=== PATIENT | female | born 1990 | race Caucasian/White ===

== ENCOUNTER 2018-04-09 05:33 | Emergency (ER) | payer OTHER ==
[~2018-04-09] VITALS: Ht 162.6 cm; Wt 59.9 kg
--- NOTE | 2018-04-09 06:05 | NUR ---
PT BIBSELF C/C FLU LIKE SYMPTOMS, COUGH, COLD, CONGESTION. +N/V X 2 DAYS. PT AOX4. NAD NOTED. RESP EVEN AND UNLABORED. PT ON MONITOR IN BED 9. WILL CONTINUE TO MONITOR.
[2018-04-09] MEDS ORDERED: IBUPROFEN 600 MG TABLET PO ONE ×2 (06:30→06:31)
[2018-04-09] MEDS ORDERED: ONDANSETRON HCL/PF 4 MG/2 ML VIAL ONE (06:30)
[2018-04-09] MEDS ORDERED: ACETAMINOPHEN 650 MG/20.3 ML UDC PO ONE (06:30)
[2018-04-09] MEDS ORDERED: ONDANSETRON HCL/PF - ER 4 MG/2 ML VIAL IV ONE (06:30)
[2018-04-09] MEDS ORDERED: IV NS 0.9% 1,000 ML IV ONE (06:30)
[2018-04-09] MEDS ORDERED: ACETAMINOPHEN 325 MG TABLET ONE (06:31)
--- NOTE | 2018-04-09 07:23 | NUR ---
REPORT RECEIVED FROM BASIM WOODS FOR [facility]
--- NOTE | 2018-04-09 07:47 | NUR ---
IV removed. Catheter intact and site benign. Pressure and 4x4 applied to site. No bleeding noted.Patient discharged to home in stable condition. Written and verbal after care instructions given. Patient verbalizes understanding of instruction.
[2018-04-09 07:48] VITALS: BP 118/62
== END 2018-04-09 07:48 | disposition home or self-care (01) ==
LOC: ER 05:38
DX: J06.9 Acute upper respiratory infection, unspecified (principal); Z87.19 Personal history of other diseases of the digestive system
CPT/HCPCS: J2405; J7030

== ENCOUNTER 2021-09-27 09:54 | Emergency (ER) | payer OTHER ==
[~2021-09-27] VITALS: Ht 162.6 cm; Wt 70.3 kg
--- NOTE | 2021-09-27 09:54 | NUR ---
BIBS FAMILY C/O NECK PAIN THAT RADIATE TO HER LEFT ARM, DENIES RECENT FALL OR INJURY.
--- NOTE | 2021-09-27 10:11 | NUR ---
Dr Medina at for eval.
[2021-09-27] MEDS ORDERED: CYCL5TAB PO ×2 (10:24→11:04)
[2021-09-27] MEDS ORDERED: IBUP-1957 PO ×2 (10:24→11:04)
[2021-09-27] MEDS ORDERED: CYCLOBENZAPRINE 10 MG TABLET ONE (10:30)
[2021-09-27] MEDS ORDERED: KETOROLAC TROMETHAMINE INJ 30 MG/ML VIAL ONE (10:30)
[2021-09-27] MEDS ORDERED: KETOROLAC TROMETHAMINE INJ 30 MG/ML VIAL IM ONE (10:30)
[2021-09-27] MEDS ORDERED: CYCLOBENZAPRINE 10 MG TABLET PO ONE (10:30)
[2021-09-27 11:15] VITALS: BP 126/85
== END 2021-09-27 11:15 | disposition home or self-care (01) ==
LOC: ER 10:04
DX: M54.12 Radiculopathy, cervical region (principal); Z90.89 Acquired absence of other organs; Z79.899 Other long term (current) drug therapy
CPT/HCPCS: 99283; 96372; J1885